=== PATIENT | female | born 1965 | race Caucasian/White ===

== ENCOUNTER 2023-12-24 01:43 | Observation (INO) | payer OTHER, SELFPAY ==
[2023-12-23 21:49] VITALS: BP 182/108
--- NOTE | 2023-12-23 22:44 | ED.MUSCINJ ---
HPI-Injury
General
Chief Complaint: Musculo-Skeletal Complaint
Source: patient and spouse
Exam Limitations: none
Time Seen by Provider: 12/23/23 22:24
Nursing documentation reviewed up to this point in time: agreed with
Travel History
Have you had any contact with someone who has COVID-19?: No
Do you have any symptoms of coronavirus? Fever > 100 degrees, chills, cough, shortness of breath, sore throat, loss of taste or smell, muscle aches, or headache?: No
History of Present Illness-Injury
Initial Injury comments:
58-year-old female with history of HTN presents for swelling in her right upper arm. Distally feels 'a little tingly.'stating earlier today she was carrying a box and went to put it on the counter, the box hit the counter jamming her right arm up
into the shoulder. Initially she had shoulder pain but it resolved after a short while. She felt well, she went shopping she was moving her arm all around until 730 tonight while she was sitting watching TV her right upper arm started to swell and
become more painful. She took Aleve and applied ice.
Past History
Past History
ED Past Medical History: HTN
ED Past Surgical History: , Gynecological and Orthopedic
Social History
Tobacco: Non-smoker
Alcohol: Occasional
Personal:
Living: with family
Review of Systems
Review of Systems
Allergies reviewed?: Yes
All Other Systems: ROS reviewed and negative except as documented in HPI and ROS
Constitutional: Denies fever
Musculoskeletal: Reports other (Swelling and pain right upper arm)
Neurological: Reports other (Mild tingling in her fingers of right arm)
Phy Exam
Physical Exam
Physical Exam:
GENERAL: No acute distress. A&Ox3.
CONSTITUTIONAL: Afebrile.
RESPIRATORY: Regular respirations, nonlabored, lungs clear.
CARDIOVASCULAR: Regular rate and rhythm, no murmurs, no rubs. Normal radial and ulnar pulses, brisk capillary refill. Circumference right mid biceps 34.5 cm. Circumference left mid biceps 31.0 cm
GI: Soft, nontender
MUSCULOSKELETAL: RUE: swelling upper arm. Tense tender mass biceps area. Moves with ease. Well perfused.
SKIN: Warm, dry, pink
PSYCH: Normal mood and affect. Well kept, interactive and appropriate
NEUROLOGIC: Awake, alert and oriented. No focal neurological deficits
Injury Course
Orders/Labs/Results
Orders:
Orders
12/23/23 22:48
CT Upper Ext W/iv Cont Rt Urgent
Comment:
Reason For Exam: increasing swelling, pain upper arm after injury
0.9% Sodium Chloride 500 ml [Nss] 500 ml IV BOLUS
12/23/23 23:01
Complete Blood Count/With Diff Urgent
Comprehensive Metabolic Panel Urgent
12/24/23 00:16
0.9% Sodium Chloride 250 ml [Nss] 250 ml IV BOLUS
12/24/23 00:25
Oxycodone/Acetaminophen [Percocet 5/325] 1 tablet PO NOW STA
12/24/23 00:36
ORTHOPEDIC CONSULT Urgent
Consulting Provider: Niles Santoyo
Was physician already notified: Yes
Reason for consult: RUE hematoma, extravasation.
12/24/23 00:37
Danielito Wrap Right-Treatment ONCE
12/24/23 01:29
Admit/Transfer Patient As Directed
Co-Sign Provider:
Level of Care: Observation services
Assign to:: Medical/Surgical
Physician / Group: Anny
Diagnosis: RUE hemorrhage
12/24/23 01:30
Code Status As Directed
Resuscitation Status: Full Code
12/24/23 02:54
0.9% Sodium Chloride 1000 ml [Nss] 1,000 ml IV 100 mls/hr
Acetaminophen [Tylenol] 650 mg PO Q4HPRN PRN
Morphine Sulfate 2 mg IV Q4HPRN PRN
Oxycodone [Roxicodone] 5 mg PO Q4HPRN PRN
12/24/23 02:54
Activity As Directed
Activity Level: With Assistance
Pneumatic Compression Sleeves As Directed
Type: Knee high
Vital Signs As Directed
Frequency: Per unit guidelines
DX Deep Vein Thrombosis Video Routine
12/24/23 04:30
Basic Metabolic Panel IN AM
Complete Blood Count/No Diff IN AM
12/24/23 08:00
Bupropion(24Hr)Extended Releas [WELLBUTRIN XL (24 hour extended release)] 300 mg PO DAILY
Cholecalciferol (Vitamin D3) [VITAMIN D3 (cholecalciferol)] 125 mcg PO DAILY
Fluoxetine HCl [Prozac] 10 mg PO DAILY
Lisinopril [Zestril] 10 mg PO DAILY
Abnormal Lab Results
12/23/23
23:01
RBC 3.88 L 10^6/uL
(4.20-5.40)
Hgb 11.6 L g/dL
(12.0-16.0)
Hct 33.4 L %
(37.0-47.0)
BUN 29 H mg/dl
(7-17)
Creatinine 1.2 H mg/dL
(0.6-1.0)
Glucose 109 H mg/dl
(70-99)
12/23/23 23:01
12/23/23 23:01
MDM/Problems Addressed
Differential Diagnosis Includes:
hematoma, vascular extravasation, rupture biceps
MDM/Problems Addressed:
58-year-old female with history of HTN presents for swelling in her right upper arm. Distally feels 'a little tingly.'stating earlier today she was carrying a box and went to put it on the counter, the box hit the counter jamming her right arm up
into the shoulder. Initially she had shoulder pain but it resolved after a short while. She felt well, she went shopping she was moving her arm all around until 730 tonight while she was sitting watching TV her right upper arm started to swell and
become more painful. She took Aleve and applied ice.
Pain not significant to indicate compartment syndrome, no distal circulatory compromise, mild tingling in fingers.
12/23/2023 2335 PM
CBC with no clinically significant abnormality
CMP: BUN/creat 29/1.2, GFR 52.14 should be okay for IV contrast, IV fluids infusing
12/24/2023 0017 AM
CAT scan right upper arm with IV contrast, vision radiology report reviewed:
Large hematoma into the right biceps musculature (although without discretely measurable hematoma; the hemorrhage is diffusely distributed throughout the muscle compartment) with focal extravasation in the mid muscle body from the unnamed
intramuscular vessel (not the brachial artery itself). Small extrafascial fluid and hemorrhage tracks cranially along the short and long head of the biceps tendon and caudally along the distal biceps tendon insertion. There is no acute osseous
abnormality.
No compartment syndrome
Pain 8/10. Danielito wrap applied. Pain med ordered.
Orthopedic Dr. Santoyo consult in, notified of admission, report sent to him
Hospitalist notified of admission.
*Critical Care Note
Total Time (30-74mins, 75-104mins- exclusive of procedures): Not Applicable
ED Attending Note
-
Portions of this chart may have been created with voice recognition software.� Occasional wrong word or��sound alike� substitutions may have occurred due to the inherent limitations of voice recognition software.
Discharge Plan
Departure
Patient Disposition: Admit
Date of Disposition: 12/24/23
Time of Disposition: 00:38
Admit to: Med/Surg
Presentation/result/management discussed w/ accepting MD/DO: Hospitalist
Patient with high blood pressure during this ER visit?: Yes
Condition: Fair
Discharge Problem:
Hematoma of right upper extremity
Interventions
Interventions:
*Risk Screen - Suicide Last Done: 12/24/23 05:00
*General Assessment Last Done: 12/23/23 22:43
*Neglect/Abuse Screening Last Done: 12/23/23 21:49
ED- Fall Risk Assessment Last Done: 12/24/23 01:03
*ED COVID-19 Vaccine History Last Done: 12/24/23 01:03
*Nursing Disposition Last Done: 12/24/23 03:47
ED-Musculoskeletal Assessment Last Done: 12/24/23 01:03
Discharge Date and Time
Discharge Date/Time: 12/24/23 03:47
[2023-12-23] MEDS: NSS 500 IV (23:03)
[2023-12-23 23:08] LABS: % Basophils 0.6 % (0-2); % Eosinophils 2.3 % (0-6); % Immature Granulocytes 0.5 % (0-0.5); % Lymphocytes 24.1 % (20.5-51.1); % Monocytes 7.2 % (1.7-9.3); % Neutrophils 65.3 % (42.2-75.2); Absolute Basophils 0.1 10^3/uL (0-0.2); Absolute Eosinophils 0.2 10^3/uL (0-0.7); Absolute Lymphocytes 2.1 10^3/uL (1.2-3.4); Absolute Monocytes 0.6 10^3/uL (0.1-0.6); Absolute Neutrophils 5.7 10^3/uL (1.4-6.5); Hematocrit 33.4 % (37.0-47.0); Hemoglobin 11.6 g/dL (12.0-16.0); Mean Corp Hgb Conc. 34.7 g/dL (33.0-37.0); Mean Corpuscular Hgb 29.9 pg (27.0-31.0); Mean Corpuscular Volume 86.1 fL (81.0-99.0); Mean Platelet Volume 9.6 fL (7.4-10.4); Nucleated Red Blood Cells % 0 %; Platelet Count 341 10^3/uL (130-400); Red Blood Cell Count 3.88 10^6/uL (4.20-5.40); Red Cell Dist. Width 13.5 % (11.5-14.5); White Blood Cell Count 8.7 10^3/uL (4.8-10.8)
[2023-12-23 23:25] LABS: ALT (SGPT) 23 U/L (0-35); AST (SGOT) 36 U/L (14-36); Albumin 4.4 g/dl (3.5-5.0); Alkaline Phosphatase 115 U/L (38-126); Blood Urea Nitrogen 29 mg/dl (7-17); Calcium 9.7 mg/dl (8.4-10.2); Carbon Dioxide 25 mmol/L (22-30); Chloride 107 mmol/L (98-107); Glucose 109 mg/dl (70-99); Potassium 4.8 mmol/L (3.5-5.1); Sodium 137 mmol/L (135-145); Total Bilirubin 0.7 mg/dl (0.2-1.3); Total Protein 7.1 g/dl (6.3-8.2); eGFR 52.14
[2023-12-24] MEDS: NSS 250 IV (00:35)
[2023-12-24] MEDS: PERCOCET 5/325 1 TABLET PO (00:37)
[2023-12-24 00:46] VITALS: BP 139/82
[2023-12-24 01:03] VITALS: BP 132/64; BMI 29.2
--- NOTE | 2023-12-24 01:22 | HPS.HSE ---
Family Physician
-
Family Physician: Aleta Ng
Chief Complaint
-
R arm injury
History of Present Illness
58 y/o F with PMHx:
Essential HTN
Depression
who presents after having a R arm injury yesterday resulting after a box she was carrying hit the counter and forced her arm up towards her shoulder. Initially the patient had some shoulder pain which resolved. The patient subsequently developed
right arm swelling and some tingling in her fingers prompting her to come to the ER. Patient denies any other acute complaints. After imaging in the ER it was recommended that the patient be observed in the hospital for concern for developing
compartment syndrome.
Medical History
Past Medical History
Past Medical History: Reports Other (as per HPI)
Past Surgical History: Reports Other (N/A)
Social History
Tobacco: Non-smoker
Alcohol: None
Drug: None
Family History
Family History: Not pertinent
Allergies / Home Medications
Allergies reflects when Allergies were last updated in [email or web address].
Home Medications with original date entered in [email or web address]
Allergy/Medication List:
Allergies
Allergy/AdvReac Type Severity Reaction Status Date / Time
NKA - No Known Allergies Allergy Unknown Uncoded 12/23/23 21:52
Home Medications
bupropion HCl 300 mg 24 hr tablet, extended release (Wellbutrin XL) 300 mg PO DAILY 12/24/23
cholecalciferol (vitamin D3) 125 mcg (5,000 unit) tablet (Vitamin D3) 125 mcg PO DAILY 12/24/23
fluoxetine 10 mg tablet 10 mg PO DAILY 12/24/23
lisinopril 10 mg tablet 10 mg PO DAILY 12/24/23
Review of Systems
-
History Source: Patient
A 12 point ROS was completed and negative except as noted: Yes
Physical Exam
Vital Signs
Vital Signs
Temp Pulse Resp BP Pulse Ox
98 F 67 14 132/64 99
12/23/23 21:49 12/24/23 01:03 12/24/23 01:03 12/24/23 01:03 12/24/23 01:03
Physical Exam
General: Other (.)
Laboratory Results
-
12/23/23 23:01
12/23/23 23:
Laboratory Results
Total Bilirubin 0.7 mg/dl (0.2-1.3) 12/23/23 23:
AST 36 U/L (14-36) 12/23/23 23:
ALT 23 U/L (0-35) 12/23/23 23:
Alkaline Phosphatase 115 U/L (38-126) 12/23/23 23:01
Impression/Plan
-
Gen: NAD, AAOx3.
Eyes: EOMI, PERRLA, no scleral icterus.
Neck: supple.
CV: RRR, +S1/S2, no m/r/g.
Resp: CTAB, no rales, wheezes, or rhonchi.
Abd: +BS, soft, NT, ND
Skin: No rashes.
MSK: R arm with ADILSON bandage in place. No erythema/warmth/joint effusion in the R shoulder.
Vasc: 2+ R radial pulse
Neuro: CN 2-12 intact, non-focal.
Psych: Normal mood and affect.
CT RUE w/IV: Large hemorrhage into the right biceps musculature (although without discretely measurable hematoma; the hemorrhage is diffusely distributed throughout the muscle compartment) with focal extravasation into the mid muscle body from an
unnamed intramuscular vessel (not the brachial artery itself). Small extrafascial fluid and hemorrhage tracks cranially along the short and long heads of the biceps tendon and caudally along the distal biceps tendon insertion. No acute osseous
abnormality.
RUE traumatic hemorrhage:
-ADILSON wrap in place
-R radial pulse 2+
-ortho consult (ER notified Dr. Santoyo)
-monitor for signs of compartment syndrome
Essential HTN:
-cont ACEi
Depression:
-Continue fluoxetine/Wellbutrin XL
FULL/SCDs
--- NOTE | 2023-12-24 02:55 | EDRN ---
Orders processed and pharmacy informed.
[2023-12-24] MEDS: NSS 1000 IV (03:09)
[2023-12-24 03:57] VITALS: BP 127/86
[2023-12-24 04:44] LABS: Hematocrit 30.7 % (37.0-47.0); Hemoglobin 10.5 g/dL (12.0-16.0); Mean Corp Hgb Conc. 34.2 g/dL (33.0-37.0); Mean Corpuscular Hgb 29.8 pg (27.0-31.0); Mean Corpuscular Volume 87.2 fL (81.0-99.0); Mean Platelet Volume 9.9 fL (7.4-10.4); Platelet Count 339 10^3/uL (130-400); Red Blood Cell Count 3.52 10^6/uL (4.20-5.40); Red Cell Dist. Width 13.5 % (11.5-14.5); White Blood Cell Count 11.1 10^3/uL (4.8-10.8)
[2023-12-24 05:11] LABS: Blood Urea Nitrogen 30 mg/dl (7-17); Carbon Dioxide 24 mmol/L (22-30); Chloride 108 mmol/L (98-107); Estimated Creatinine Clearance 56 ml/min; Glucose 100 mg/dl (70-99); Potassium 4.3 mmol/L (3.5-5.1); Sodium 136 mmol/L (135-145); eGFR > 60.00
[2023-12-24 06:00] VITALS: BMI 29.2
--- NOTE | 2023-12-24 06:34 | W.PN.UPDATE ---
Update Note
Progress Note Update
pt seen and examined. injury hx obtained and will be detailed in consult note.
exam shows swellign of right upper arm which is wrapped in saima which I removed. The compartments are swollen but compressible in the upper arm. Mostly the biceps swollen. She volitionally moves her shoulder and elbow nearly fully. R elbow
extension terminal 5 degrees limited by discomfort but her level of pain is not at a level consistent w. compartment syndrome. Her R hand is well perfused and she has intact m/r/u sensory and nerve function with excellent strength.
At present I do not see symptoms of compartment syndrome. In fact she says pain is improved as compared w. midnight. If she has continued pain at this level or improved pain by mid afternoon she can probably be d/c home with instructions on what
to monitor, which I educated her on. Pain is def not at a level to warrant invasive compartment pressure measurements.
[2023-12-24 07:53] VITALS: BP 116/65
[2023-12-24] MEDS: WELLBUTRIN XL (24 hour extended release) 300 MG PO (07:55)
[2023-12-24] MEDS: ZESTRIL 10 MG PO (07:55)
[2023-12-24] MEDS: PROZAC 10 MG PO (07:55)
[2023-12-24] MEDS: VITAMIN D3 (cholecalciferol) 125 MCG PO (07:55)
--- NOTE | 2023-12-24 09:48 | W.PN.UPDATE ---
Update Note
Progress Note Update
Non billable note
Seen and focus examination done.
Denies of having any significant right arm pain, good bounding radial pulse. No signs of arterial ischemia of right hand
Ortho evaluated and requested conservative management. no surgical indication
continue pain control, discussed with RN to prioritize oral pain meds to better understand discharge pain medication needs
Medically stable for discharge to home. patient considering.
--- NOTE | 2023-12-24 10:23 | CM ---
Reviewed chart. Met with Mrs. Thorne to review discharge plans. She states prior to admission she resides with her spouse and son in a two story home with one step to enter. She states prior to admission she was independent with ambulation and
adls. She states she does not have any DME in the home. She states she has a prescription plan and uses [facility]. The discharge plan is to return home with her spouse and son when medically stable.
[2023-12-24] MEDS: TYLENOL 650 MG PO (14:20)
[2023-12-24 15:31] VITALS: BP 124/76
--- NOTE | 2023-12-24 18:09 | PTCARENOTE ---
Pt discharged to w/ providing transportation. Pt left w/belongings including clothing, purse, & contract admin.
--- NOTE | 2023-12-25 07:29 | W.DCSUMMARY ---
Discharge Summary
Discharge Data
Date of Admission: 12/24/23
Date of Discharge: 12/24/23
-
Pending Results: No
Hospital Course
Discharging Physician : Dr Jacinto Head
Disposition : Home
Primary care physician : Dr Aleta Ng
Principal Discharge diagnosis :
Right arm traumatic hemorrhage
Chronic Discharge diagnosis :
Essential hypertension
Depression
Hospital Course :
58-year-old female with above-mentioned past medical history comes to ER after new onset of right arm pain and swelling. Patient apparently moving boxes and patient hit the counter forcing her arm up towards her shoulder resulting in pain. After
some time patient started noticing new onset arm swelling and tingling of finger prompting an ER visit. Patient had a CT of right upper extremity showing new hematoma in medial bicep muscle with possible bleed from an intramuscular unnamed branch.
No major arterial bleed/extravasation of contrast noted. Patient had good radial pulses and arm was Danielito wrapped and orthopedic surgery consulted for further evaluation. Ortho rule out any concern of compartment syndrome. Patient was cleared for
discharge with follow-up in orthopedic office if continues to have problem. Patient instructed to elevate arm as possible and was instructed on avoiding any strenuous activity of right arm for next week.
Important imaging findings :
None
Procedure findings :
None
Discharge Plan
-
Patient Disposition: Home (Routine Discharge)
Discharge Diagnosis/Procedures: Right arm hematoma
Condition: Fair
Diet: Regular
Activity: No strenuous activity
Additional Activity: No strenuous activity with right hand
Driving Restrictions: No driving for 24 hours
Bathing Restrictions: OK to Shower
Activity Restrictions/Additional Instructions:
Follow up Dr Santoyo's office if have any further right arm pain.
Referrals:
Aleta Ng CRNP [Family Provider] - in one week
Niles Santoyo MD [Active] -
Prescriptions:
New
oxycodone 5 mg tablet
5 mg PO Q8H PRN (Reason: Mod sev pain) Qty: 14 0RF
acetaminophen 325 mg Tablet
650 mg PO Q4HPRN PRN (Reason: mild pain) Qty: 60 0RF
Continued
fluoxetine 10 mg Tablet
10 mg PO DAILY
lisinopril 10 mg Tablet
10 mg PO DAILY
bupropion HCl [Wellbutrin XL] 300 mg Tablet Extended Release 24 Hr
300 mg PO DAILY
cholecalciferol (vitamin D3) [Vitamin D3] 125 mcg (5,000 unit) Tablet
125 mcg PO DAILY
Discharge Orders:
Discharge Patient (As Directed); Ordered 12/24/23
Ordered By: Jacinto Head
Care Plan Goals
Care Plan Goals:
Problem: Readiness for enhanced knowledge related to diagnosis and treatment plan
Goal: Understand your diagnosis and treatment plan needs, including medications if applicable.
Instructions: Know your diagnosis, underlying causes and treatment plan options, including medications if applicable. Consult with your health care team to learn about your diagnosis and treatment plan, including medications if applicable.
Discharge Date and Time
Discharge Date/Time: 12/24/23 19:05
== END 2023-12-24 19:05 | disposition home or self-care (01) ==
LOC: IVU 01:43
PROVIDERS: Registered Nurse; ADMITTING PHYSICIAN Internal Medicine; ATTENDING PHYSICIAN Hospitalist; CONSULT PHYSICIAN Orthopaedic Surgery; EMERGENCY PHYSICIAN Emergency Medicine; FAMILY PHYSICIAN Nurse Practitioner Adult Health
DX: S40.021A Contusion of right upper arm, initial encounter (principal); X50.0XXA Overexertion from strenuous movement or load, initial encounter; I10 Essential (primary) hypertension; F32.A Depression, unspecified; Z79.899 Other long term (current) drug therapy
CPT/HCPCS: 73201; 80048; 80053; 85025; 85027; 96360; 96361; 99285; G0378; Q9967

== ENCOUNTER → 2024-06-26 10:12 | Outpatient (REF) | payer OTHER, SELFPAY | LOC: HWWDC 10:12 | PROVIDERS: ATTENDING PHYSICIAN Nurse Practitioner Adult Health | DX: Z12.31 Encounter for screening mammogram for malignant neoplasm of breast (principal) | CPT/HCPCS: 77063; 77067 ==

== ENCOUNTER → 2024-12-18 09:22 | Outpatient (REF) | payer BC, SELFPAY | LOC: HWRAD 09:22 | PROVIDERS: ATTENDING PHYSICIAN Nurse Practitioner Adult Health | DX: R79.89 Other specified abnormal findings of blood chemistry (principal) | CPT/HCPCS: 76770 ==

== ENCOUNTER → 2025-06-19 12:45 | Outpatient (REF) | payer BC, SELFPAY | LOC: RAD 12:45 | PROVIDERS: ATTENDING PHYSICIAN Nurse Practitioner Adult Health | DX: R10.9 Unspecified abdominal pain (principal); R31.29 Other microscopic hematuria | CPT/HCPCS: 76770 ==

== ENCOUNTER → 2025-06-29 11:53 | Outpatient (REF) | payer BC, SELFPAY | LOC: HWWDC 11:53 | PROVIDERS: ATTENDING PHYSICIAN Nurse Practitioner Adult Health | DX: Z12.31 Encounter for screening mammogram for malignant neoplasm of breast (principal) | CPT/HCPCS: 77063; 77067 ==

== ENCOUNTER → 2025-07-15 12:32 | Outpatient (REF) | payer BC, SELFPAY | LOC: RAD 12:32 | PROVIDERS: ATTENDING PHYSICIAN Nurse Practitioner Adult Health | DX: R31.29 Other microscopic hematuria (principal); R10.9 Unspecified abdominal pain | CPT/HCPCS: 74178; Q9967 ==

== ENCOUNTER 2025-07-24 10:43 | Emergency (ER) | payer BC, SELFPAY ==
[2025-07-24 10:47] VITALS: BP 144/91
--- NOTE | 2025-07-24 12:17 | ED.GENMED ---
History of Present Illness
General
Chief Complaint: Dizziness
Source: patient
Exam Limitations: none
Time Seen by Provider: 07/24/25 11:54
Nursing documentation reviewed up to this point in time: agreed with
History of Present Illness
History of Present Illness:
Patient is a 60-year-old female with past medical history of hypertension followed by family doctor for mild CKD who presents to the ER for evaluation. She reports last night this morning she had a swishing sensation in her right ear. She
currently does not have symptoms. She also reports intermittently for the past several weeks she has felt dizzy/lightheaded. She denies any actual room spinning vertigo symptoms. No recent trauma. She does get adjusted by chiropractor last went
yesterday.
Past History
Past History
ED Past Medical History: HTN
ED Past Surgical History: , Gynecological and Orthopedic
Social History
Tobacco: Non-smoker
Alcohol: Occasional
Personal:
Living: with family
Phy Exam
General Physical Exam
General Presentation: no apparent distress
General age: appears stated age
General Skin: warm and dry
General Habitus: normal
General Mental: alert
General Hydration: appears well hydrated
ENT Exam
ENT Exam: other (Right TM not visualized due to cerumen left TM unremarkable)
Neurological Exam
Neurological Exam: alert and oriented x3
Musculoskeletal Exam
Musculoskeletal Exam: full ROM
Skin Exam
Skin Exam: normal color and warm/dry
Course
Orders/Labs/Results
Orders:
Orders
07/24/25 12:53
CT Head & Neck Angio W/wo IV Urgent
Comment:
Reason For Exam: dizziness, sensation in right ear s/p chiropractor
07/24/25 12:54
IV Insert/Care/Rem.- Treatment PRN
0.9% Sodium Chloride 1000 ml [Nss] 1,000 ml IV BOLUS
07/24/25 13:20
Complete Blood Count/With Diff Urgent
Comprehensive Metabolic Panel Urgent
Abnormal Lab Results
07/24/25
13:20
RBC 4.08 L 10^6/uL
(4.20-5.40)
Hct 35.6 L %
(37.0-47.0)
07/24/25 13:20
07/24/25 13:20
Vital Signs
Initial and Last Documented VS:
Initial Vital Signs
Temp Pulse Resp BP Pulse Ox
97.5 F 75 18 144/91 100
07/24/25 10:47 07/24/25 10:47 07/24/25 10:47 07/24/25 10:47 07/24/25 10:47
Last Documented Vital Signs
Temp Pulse Resp BP Pulse Ox
97.5 F 61 18 118/80 99
07/24/25 10:47 07/24/25 14:00 07/24/25 10:47 07/24/25 14:00 07/24/25 14:00
MDM/Problems Addressed
Differential Diagnosis Includes:
Not limited vertigo lightheadedness dehydration anemia
MDM/Problems Addressed:
Patient no acute distress CTA negative normal neurologic exam normal vital signs normal white count afebrile stable hemoglobin normal electrolytes including normal renal function. Patient is no acute distress there is significant mount of wax in
the right ear she has no discomfort at this time no sensation of' swishing at this time.' Will DC with [id number] Debrox.
*Radiology
Radiology exam reviewed: radiology read reviewed
*Pulse Oximetry
SaO2: 100
Oxygen Mode of Delivery: Room air
Patient hypoxic: no
*Critical Care Note
Total Time (30-74mins, 75-104mins- exclusive of procedures): Not Applicable
ED Attending Note
-
Portions of this chart may have been created with voice recognition software.� Occasional wrong word or��sound alike� substitutions may have occurred due to the inherent limitations of voice recognition software.
Discharge Plan
Departure
Patient Disposition: Home (Routine Discharge)
Date of Disposition: 07/24/25
Time of Disposition: 15:26
Patient with high blood pressure during this ER visit?: Yes
Condition: Fair
Covid-19: Not Applicable
Discharge Problem:
Dizziness, Cerumen impaction
Instructions: Ear wax impaction - ED (DC), Dizziness, BLOOD PRESSURE
Prescriptions:
No Action
fluoxetine 10 mg Tablet
10 mg PO DAILY
lisinopril 10 mg Tablet
10 mg PO DAILY
bupropion HCl [Wellbutrin XL] 300 mg Tablet Extended Release 24 Hr
300 mg PO DAILY
cholecalciferol (vitamin D3) [Vitamin D3] 125 mcg (5,000 unit) Tablet
125 mcg PO DAILY
oxycodone 5 mg tablet
5 mg PO Q8H PRN (Reason: Mod sev pain) Qty: 14 0RF
acetaminophen 325 mg Tablet
650 mg PO Q4HPRN PRN (Reason: mild pain) Qty: 60 0RF
Referrals:
Aleta Ng CRNP [Family Provider, General]
Activity Restrictions/Additional Instructions:
As discussed your CAT scan was negative and your labs are unremarkable. Please use [id number] Debrox to remove the wax in your right ear. Please closely follow-up with a family doctor the next several days for reevaluation return if any
worsening of symptoms
Interventions
Interventions:
*Risk Screen - Suicide Last Done: 07/24/25 10:47
*General Assessment Last Done: 07/24/25 13:20
*Neglect/Abuse Screening Last Done: 07/24/25 13:20
*ED COVID-19 Vaccine History Last Done: 07/24/25 13:20
*ED Influenza Vaccine History Last Done: 07/24/25 13:20
ED- Neurological Assessment Last Done: 07/24/25 13:20
Discharge Date and Time
Print Language: SLOVAK
[2025-07-24 13:20] VITALS: BP 122/90
[2025-07-24 13:21] VITALS: BMI 25.1
[2025-07-24] MEDS: NSS 1000 IV (13:22)
[2025-07-24 13:37] LABS: Hematocrit 35.6 % (37.0-47.0); Hemoglobin 12.3 g/dL (12.0-16.0); Mean Corp Hgb Conc. 34.6 g/dL (33.0-37.0); Mean Corpuscular Volume 87.3 fL (81.0-99.0); Nucleated Red Blood Cells % 0 %; Platelet Count 360 10^3/uL (130-400); Red Cell Dist. Width 13.5 % (11.5-14.5)
[2025-07-24 13:56] LABS: ALT (SGPT) 18 U/L (0-35); AST (SGOT) 25 U/L (14-36); Albumin 4.4 g/dl (3.5-5.0); Alkaline Phosphatase 67 U/L (38-126); Blood Urea Nitrogen 11 mg/dl (7-17); Calcium 9.5 mg/dl (8.4-10.2); Carbon Dioxide 26 mmol/L (22-30); Chloride 105 mmol/L (98-107); Estimated Creatinine Clearance 58 ml/min; Glucose 91 mg/dl (70-99); Potassium 4.3 mmol/L (3.5-5.1); Sodium 137 mmol/L (135-145); Total Protein 7.2 g/dl (6.3-8.2); eGFR > 60.00
[2025-07-24 14:00] VITALS: BP 118/80
[2025-07-24 15:47] VITALS: BP 122/84
== END 2025-07-24 15:47 | disposition home or self-care (01) ==
LOC: EMR 10:43
PROVIDERS: Nurse Practitioner; EMERGENCY PHYSICIAN Emergency Medicine; FAMILY PHYSICIAN Nurse Practitioner Adult Health
DX: R42 Dizziness and giddiness (principal); H61.21 Impacted cerumen, right ear; I12.9 Hypertensive chronic kidney disease with stage 1 through stage 4 chronic kidney disease, or unspecified chronic kidney disease; N18.2 Chronic kidney disease, stage 2 (mild)
CPT/HCPCS: 99284; 96360; 70496; 70498; 80053; 85025; Q9967